=== PATIENT | male | born 1960 | race Caucasian/White ===

== ENCOUNTER 2024-12-22 17:52 | Emergency (ER) | payer MEDICARE, SELFPAY ==
[2024-12-22] VITALS (9 sets, daily range): BP systolic 133–134; BP diastolic 72–77; PULSE 57–69; TEMP 36.7; O2SAT 96–98; BMI 20.1
--- NOTE | 2024-12-22 18:22 | ECG_ITS ---
The [facility] Test Date: 2024-12-22 Pat Name: CARMELLA VILLAGRAN Department: Room: - Gender: Male High Man: : 1960 Requested By: [id number] Order Number: [id number] Reading MD: CHRISTY LÓPEZ M.D. Measurements Intervals [place] Rate: 53 P: 72 MO: 198 QRS: 77 QRSD: 96 T: 73 QT: 404 QTc: 387 Interpretive Statements 1100 Sinus rhythm 2420 RSR (QR) in lead V1/V2, consistent with right ventricular conduction delay 9130 borderline ECG No previous ECG available for comparison Electronically Signed On 12-24-2024 6:42:50 EDT by CHRISTY LÓPEZ M.D.
--- NOTE | 2024-12-22 18:22 | XR_ITS ---
The [address] [address] Patient Name: CARMELLA VILLAGRAN MRN: [id number] date: 1960 Sex: M Assigned Patient Location: ED.MAIN Current Patient Location: ED.MAIN Accession/Order Number: [id number] Exam Date: 12/22/2024 19:15 Report Date: 12/22/2024 19:15 At the request of: VERONICA MARTÍNEZ MD Procedure: XR chest 1V Plain film chest Single view HISTORY: Chest pain COMPARISON: None FINDINGS: SUPPORT DEVICES: None POSTSURGICAL CHANGES: None HEART: Within normal limits PULMONARY JOHN: Within normal limits MEDIASTINUM: Unremarkable LUNGS AND PLEURA: No acute lung process, pleural effusion or pneumothorax identified. BONY STRUCTURES: Intact ADDITIONAL FINDINGS None XR/XR chest 1V IMPRESSION: No acute process. Impression dictated by: Oneal Light M.D. 12/22/2024 7:15 PM Dictation Location: [place] [address] Electronically authenticated by: [id number] Y Date: 12/22/2024 19:15
--- NOTE | 2024-12-22 18:30 | ED.CHESTPAI1 ---
HPI - Chest Pain General Chief Complaint: Chest Pain Stated Complaint: TIGHTNESS IN CHEST OFF AND ON Time Seen by Provider: 12/22/24 18:20 Source: patient Mode of arrival: walk-in Limitations: no limitations History of Present Illness HPI narrative: The patient is 63-year-old male with history of smoking cigarettes less than 1 pack/cigarettes/day is coming to the ER with a left-sided upper chest pain that has been going on for the last 3 days, pain radiates sometimes to his left shoulder associated sometimes with movement although the patient mentioned sometimes it is associated with sweating but no difficulty breathing no coughing No other concerns of vomiting or any other concerns and he denies any history of fall or trauma or carrying something heavy Patient mentioned that the pain is comes and goes and sometimes feels that it is ache-like in the left upper chest He mentioned that he have a history of collapsed lung before although he is not sure which side Related Data Home Medications ?Medication ?Instructions ?Recorded ?Confirmed doxazosin 4 mg tablet 4 mg PO .qhs 12/22/24 12/22/24 fexofenadine-pseudoephedrine ER 1 tab PO DAILY 12/22/24 12/22/24 180 mg-240 mg tablet,ext.release 24 hr (24HR Allergy-Congestion Relief) pantoprazole 40 mg tablet,delayed 40 mg PO QDAY 12/22/24 12/22/24 release umeclidinium 62.5 mcg/actuation 1 inh inhalation Q24H 12/22/24 12/22/24 blister powder for inhalation (Incruse Ellipta) Allergies Allergy/AdvReac Type Severity Reaction Status Date / Time No Known Drug Allergies Allergy Verified 12/22/24 18:08 Review of Systems ROS Status of ROS 10 or more systems reviewed and unremarkable except as noted in history and below PFSH PFSH Social History Little interest or pleasure in doing things: not at all Feeling down, depressed, or hopeless: not at all Exam Narrative Exam Narrative: Nurses notes and vital signs reviewed and patient is not hypoxic. General: Well-appearing and in no apparent distress. Skin: Warm, dry, no pallor noted. No rash. Head: Normocephalic, atraumatic. Neck: Supple, non-tender. Eye: Pupils are equal, round and EOMI. No scleral icterus. Ears, Nose, Mouth, and Throat: TM are clear, no nasal mucosal hypertrophy. Oral mucosa is moist, no posterior oropharynx erythema, uvula is mid-line Cardiovascular: Regular Rate and Rhythm without murmur, gallop or rub. Respiratory: No accessory muscle use or respiratory distress. Lungs are clear to auscultation, no wheezing, rales or rhonchi Chest Wall: no tenderness Back: No midline thoracic or lumbar vertebral tenderness. No CVA tenderness Musculoskeletal: normal ROM, no calf or popliteal tenderness, no lower extremity edema/swelling but the patient have some tenderness upon palpation of the left shoulder with some limitation of movement of the abduction of the left shoulder above 90 degrees due to pain. GI: Abdomen is soft, non-distended. Normal bowel sounds. No masses appreciated. No tenderness to palpation. No rebound, guarding, or rigidity noted. Neurological: A&O x4. No cranial nerve dysfunction observed. No truncal ataxia. Moves all extremities. Sensation intact. Psychiatric: Cooperative and interactive. Normal mood and affect. Constitutional Vital Signs, click to edit/add: Last Vital Signs Temp 98.1 F 12/22/24 18:10 Pulse 57 L 12/22/24 18:10 Resp 14 12/22/24 18:10 BP 133/77 12/22/24 18:10 Pulse Ox 96 12/22/24 18:10 O2 Del Method Room Air 12/22/24 18:10 Course Vital Signs Vital signs: Vital Signs Temperature 98.1 F 12/22/24 18:10 Pulse Rate 57 L 12/22/24 18:10 Respiratory Rate 14 12/22/24 18:10 Blood Pressure 133/77 12/22/24 18:10 Pulse Oximetry 96 12/22/24 18:10 Oxygen Delivery Method Room Air 12/22/24 18:10 Temperature 98.1 F 12/22/24 18:10 Pulse Rate 57 L 12/22/24 18:10 Respiratory Rate 14 12/22/24 18:10 Blood Pressure 133/77 12/22/24 18:10 Pulse Oximetry 96 12/22/24 18:10 Oxygen Delivery Method Room Air 12/22/24 18:10 MDM - Chest Pain MDM Narrative Medical decision making narrative: The patient EKG in the ER upon arrival showing sinus rhythm with a heart rate of [address] elevation although there is nonspecific changes at V2 CBC chemistry as well as chest x-ray and troponin are pending Discharge Plan Discharge Patient Disposition: Still a Patient
[2024-12-22] MEDS: KETOROLAC TROMETHAMINE 30 MG/ML VIAL 15 MG IVP (18:52)
[2024-12-22 18:53] LABS: Hematocrit 45.5 % (42.0-54.0); Hemoglobin 16.1 g/dL (14.0-18.0); Immature Granulocytes Abs Auto 0.03 10^3/uL (0.00-0.03); Immature Granulocytes Pct Auto 0.4 % (0.0-0.5); Lymphocytes Absolute Auto 1.8 10^3/uL (1.2-3.8); Mean Corpuscular HGB Conc 35.4 g/dL (29.9-35.2); Mean Corpuscular Hemoglobin 32.2 pg (25.9-34.0); Mean Corpuscular Volume 91.0 fL (80.0-94.0); Platelet Count 192 10^3/uL (150-450); Red Blood Count 5.00 10^6/uL (4.70-6.10); White Blood Count 7.0 10^3/uL (4.0-11.0)
[2024-12-22 19:04] LABS: INR 1.05; Prothrombin Time 11.1 sec (9.0-11.6)
[2024-12-22 19:07] LABS: Alanine Aminotransferase 32 U/L (16-63); Albumin Globulin Ratio 1.5; Albumin Level 4.3 g/dL (3.4-5.0); Alkaline Phosphatase 79 U/L (46-116); Anion Gap 13.9; Aspartate Amino Transferase 21 U/L (15-37); Blood Urea Nitrogen 16.0 mg/dL (7.0-18.0); Calcium 9.4 mg/dL (8.5-10.1); Carbon Dioxide 28.0 mmol/L (21.0-32.0); Chloride 101 mmol/L (98-107); Estimated GFR (African America >60 (>=60 mL/min/1.73m^2); Estimated GFR (Non-African Ame >60 (>=60 mL/min/1.73m^2); Globulin 2.9 g/dL; Glucose 100 mg/dL (74-106); Potassium 3.9 mmol/L (3.5-5.1); Sodium 139 mmol/L (136-145); Total Protein 7.2 g/dL (6.4-8.2)
--- NOTE | 2024-12-22 19:47 | ED.CHESTPAI1 ---
HPI - Chest Pain General Chief Complaint: Chest Pain Stated Complaint: TIGHTNESS IN CHEST OFF AND ON Time Seen by Provider: 12/22/24 18:20 Source: patient Mode of arrival: walk-in Limitations: no limitations History of Present Illness HPI narrative: This 63-year-old male signed out to me at shift change. He presents for evaluation of 3 days of intermittent pain in the left upper chest wall. It is not associated with shortness of breath dizziness or syncope but he did have some diaphoresis this morning. He does not have any lower extremity pain or swelling. He states that his daughter told him that somebody she knew recently of a heart attack which made him worried. He does admit to tobacco use. He admits to very minimal alcohol use. He does not feel dehydrated. 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 He is not having any pain while in the emergency department. His EKG was reviewed. He has a sinus bradycardia 53 bpm with no acute findings. Cardiac workup was ordered and pending at the time of signout. He has a normal white count and hemoglobin is stable. Electrolytes are normal. Troponin is negative. Bilirubin is mildly elevated at 2.1 but the remainder of his liver function tests are normal. I added on a D-dimer and the D-dimer is negative. Chest x-ray was ordered and was reviewed by radiology and is negative for acute findings. We had a lengthy discussion about tobacco use and cessation. He admits that he thinks it is time that he stop smoking because he has been a smoker for years and as he gets older it is starting to wear on him thinking that it is going to cause him to have cardiac disease or cancer. He does have an appointment with his family physician next week. He will be provided a copy of his labs and EKG to share with his family physician. He was encouraged return to emergency department at anytime for worsening chest pain shortness of breath dizziness diaphoresis or any concerns. Related Data Home Medications ?Medication ?Instructions ?Recorded ?Confirmed doxazosin 4 mg tablet 4 mg PO .qhs 12/22/24 12/22/24 fexofenadine-pseudoephedrine ER 1 tab PO DAILY 12/22/24 12/22/24 180 mg-240 mg tablet,ext.release 24 hr (24HR Allergy-Congestion Relief) pantoprazole 40 mg tablet,delayed 40 mg PO QDAY 12/22/24 12/22/24 release umeclidinium 62.5 mcg/actuation 1 inh inhalation Q24H 12/22/24 12/22/24 blister powder for inhalation (Incruse Ellipta) Allergies Allergy/AdvReac Type Severity Reaction Status Date / Time No Known Drug Allergies Allergy Verified 12/22/24 18:08 [facility] Medical History (Updated 12/22/24 @ 19:47 by Elena Aguilar MD) Smoker ?F17.200 - Nicotine dependence, unspecified, uncomplicated (ICD-10) Pneumothorax ?J93.9 - Pneumothorax, unspecified (ICD-10) COPD (chronic obstructive pulmonary disease) ?J44.9 - Chronic obstructive pulmonary disease, unspecified (ICD-10) Social History Little interest or pleasure in doing things: not at all Feeling down, depressed, or hopeless: not at all Exam Constitutional Vital Signs, click to edit/add: Last Vital Signs Temp 98.1 F 12/22/24 18:10 Pulse 57 L 12/22/24 18:10 Resp 14 12/22/24 18:10 BP 133/77 12/22/24 18:10 Pulse Ox 96 12/22/24 18:10 O2 Del Method Room Air 12/22/24 18:10 Course Vital Signs Vital signs: Vital Signs Temperature 98.1 F 12/22/24 18:10 Pulse Rate 57 L 12/22/24 18:10 Respiratory Rate 14 12/22/24 18:10 Blood Pressure 133/77 12/22/24 18:10 Pulse Oximetry 96 12/22/24 18:10 Oxygen Delivery Method Room Air 12/22/24 18:10 Temperature 98.1 F 12/22/24 18:10 Pulse Rate 57 L 12/22/24 18:10 Respiratory Rate 14 12/22/24 18:10 Blood Pressure 133/77 12/22/24 18:10 Pulse Oximetry 96 12/22/24 18:10 Oxygen Delivery Method Room Air 12/22/24 18:10 MDM - Chest Pain Lab Data Attestation: I reviewed the patient's lab results. Labs: Lab Results 12/22/24 Range/Units 18:45 WBC 7.0 (4.0-11.0) 10^3/uL RBC 5.00 (4.70-6.10) 10^6/uL Hgb 16.1 (14.0-18.0) g/dL Hct 45.5 (42.0-54.0) % MCV 91.0 (80.0-94.0) fL MCH 32.2 (25.9-34.0) pg MCHC 35.4 H (29.9-35.2) g/dL RDW 12.5 (11.0-15.0) % Plt Count 192 (150-450) 10^3/uL MPV 10.6 (9.5-13.5) fL Neut % (Auto) 65.6 (43.0-75.0) % Lymph % (Auto) 25.7 (20.5-60.0) % Dare % (Auto) 6.7 (1.7-12.0) % Eos % (Auto) 1.3 (0.9-7.0) % Baso % (Auto) 0.3 (0.2-2.0) % Neut # (Auto) 4.6 (1.4-6.5) 10^3/uL Lymph # (Auto) 1.8 (1.2-3.8) 10^3/uL Dare # (Auto) 0.5 (0.3-0.8) 10^3/uL Eos # (Auto) 0.1 (0.0-0.7) 10^3/uL Baso # (Auto) 0.0 (0.0-0.1) 10^3/uL Abs Immat Gran (auto) 0.03 (0.00-0.03) 10^3/uL Imm/Tot Granulo (auto) 0.4 (0.0-0.5) % PT 11.1 (9.0-11.6) sec INR 1.05 D-Dimer <0.19 (<=0.59) mg/L FEU Sodium 139 (136-145) mmol/L Potassium 3.9 (3.5-5.1) mmol/L Chloride 101 (98-107) mmol/L Carbon Dioxide 28.0 (21.0-32.0) mmol/L Anion Gap 13.9 BUN 16.0 (7.0-18.0) mg/dL Creatinine 0.72 (0.70-1.30) mg/dL Est GFR ( Amer) >60 (>=60 mL/min/1.73m^2) Est GFR (Non-Af Amer) >60 (>=60 mL/min/1.73m^2) BUN/Creatinine Ratio 22.2 Glucose 100 (74-106) mg/dL Calcium 9.4 (8.5-10.1) mg/dL Total Bilirubin 2.1 H (0.2-1.0) mg/dL AST 21 (15-37) U/L ALT 32 (16-63) U/L Alkaline Phosphatase 79 (46-116) U/L Troponin I High Sens 5.3 (4.0-76.1) pg/mL Total Protein 7.2 (6.4-8.2) g/dL Albumin 4.3 (3.4-5.0) g/dL Globulin 2.9 g/dL Albumin/Globulin Ratio 1.5 Discharge Plan Discharge Chief Complaint: Chest Pain Clinical Impression: Atypical chest pain, Elevated bilirubin Patient Disposition: Home, Self-Care Time of Disposition Decision: 19:46 Prescriptions / Home Meds: No Action Incruse Ellipta 62.5 mcg/actuation blister with device 1 inh INHALATION Q24H pantoprazole 40 mg tablet,delayed release (DR/EC) 40 mg PO QDAY doxazosin 4 mg tablet 4 mg PO .qhs fexofenadine-pseudoephedrine [24HR Allergy-Congestion Relief] 180-240 mg tablet extended release 24 hr 1 tab PO DAILY Print Language: Citizen Of [place] Instructions: Chest Wall Pain (ED) Additional Instructions: Follow-up with your family physician. Please remind him or her that you are in the emergency department for chest pain and found to have a mildly elevated bilirubin at 2.2. Referrals: Physician,Non-Staff, MD [Primary Care Provider] - 1 week
== END 2024-12-22 20:25 | disposition home or self-care (01) ==
PROVIDERS: Emergency Medicine; Emergency Provider Emergency Medicine
DX: R07.89 Other chest pain (principal); E80.6 Other disorders of bilirubin metabolism; F17.210 Nicotine dependence, cigarettes, uncomplicated
CPT/HCPCS: 36415; 71045; 80053; 84484; 85025; 85378; 85610; 93005; 96374; 99285; J1885